=== PATIENT | male | born 1980 | race Caucasian/White ===

== ENCOUNTER 2020-07-21 20:16 | Emergency (ER) | payer OTHER ==
[2020-07-21] MEDS ORDERED: Bacitracin 1 PK ONE (20:57)
== END 2020-07-21 21:04 | disposition home or self-care (01) ==
LOC: NAV ERS 20:16
DX: S61.210A Laceration without foreign body of right index finger without damage to nail, initial encounter (principal); I10 Essential (primary) hypertension; F17.210 Nicotine dependence, cigarettes, uncomplicated; W26.0XXA Contact with knife, initial encounter
CPT/HCPCS: 12001